=== PATIENT | female | born 1965 | race Caucasian/White ===

== ENCOUNTER → 2017-08-07 | Outpatient (CLI) | payer OTHER | LOC: FIMAGING 07:56 | PROVIDERS: ATTEND Orthopaedic Surgery | DX: S46.012A Strain of muscle(s) and tendon(s) of the rotator cuff of left shoulder, initial encounter (principal); M25.512 Pain in left shoulder; M75.82 Other shoulder lesions, left shoulder; M75.22 Bicipital tendinitis, left shoulder ==

== ENCOUNTER 2017-10-08 08:13 | Day surgery (SDC) | payer OTHER ==
--- NOTE | 2017-10-07 20:41 | GHP ---
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 She dislocated her left shoulder playing ultimate Gig[employer]letes[employer] with he r arm abducted, reaching for the Frisbee and landing on her arm. She sustained a traumatic anterior dislocation that required reduction in the emergency room and she has had a subsequent instability ev ent. She also has a history of rotator cuff tendinosis and impingement. She has had an MRI of her l eft shoulder dated 08/07/2017 that shows of anterior dislocation of the shoulder with a Hi ll-Sachs deformity posterior humeral head. There is also abnormality of the anterior inferior glenoi d, consistent with a capsular injury with this instability event, anterior displacement. There is moderate to severe partial tear of the distal supraspinatus tendon. Near full-thickness to full-thickness in the anterior aspect of the supraspinatus. There is subacromial bursitis, significa nt bony impingement anatomy. She has tried some conservative management of her instability but had recurrent instability. Left sh oulder surgery is planned. This will include a decompression of the shoulder, exploration and repair of the rotator cuff that I will start with arthroscopically. It may require a mini-open approach. I will also do an open Bankart procedure and capsular shift. ALLERGIES: No known drug allergies. PAST MEDICAL HISTORY: She does have a history of migraine headaches and arthritis joints. Her surgeries include a right shoulder arthroscopy and a right knee arthroscopy. 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 She is a nonsmoker. MEDICATIONS: Include topical gel, Celebrex. for migraines. REVIEW OF SYSTEMS: pulmonary disease. PHYSICAL EXAMINATION: GENERAL: The patient is a well-developed, well-nourished female in no apparen t distress. HEAD AND NECK: Normocephalic, atraumatic. CHEST: Clear. CARDIOVASCULAR: Regular rat e and rhythm. ABDOMEN: Soft. NEUROLOGIC: She is alert and oriented x3. EXTREMITIES: Examination of the left shoulder shows some stiffness with overhead motion. She has maintained good rotator cuf f strength on initiation of abduction and external rotation and supraspinatus testing. She does have some impingement findings. She is a little tender over the anterior joint capsule, has apprehension with abduction and external rotation. Neurovascular exam is intact and she is nontender over the AC joint. IMPRESSION: Left shoulder instability, posttraumatic instability, rotator cuff, impingement and part ial to near full-thickness tear of rotator cuff. PLAN: Left shoulder arthroscopy, decompression, cuff repair as needed, also a mini-open Bankart and capsular shift to address her instability. Benefits and risks of surgery were reviewed. She has sig rory a consent form and wishes to proceed. /[id number]/MODL
--- NOTE | 2017-10-08 07:22 | PDHPUP ---
History & Physical Update H&P update statement: This history and physical update is based on an assessment of the patient which was completed after admission or registration (within 24 hours), but prior to the surgery/procedure.
[2017-10-08] MEDS ORDERED: LR 1,000 ML IV SCH (08:22)
[2017-10-08] MEDS ORDERED: ceFAZolin 2 GM/SWFI 2 GM/20 ML SYR IVP ONE (08:22)
[2017-10-08] MEDS ORDERED: LR 1,000 ML IV ONE (08:23)
[2017-10-08] MEDS ORDERED: LIDOCAINE 1% 2 ML INJ ID PRN (08:23)
[2017-10-08] MEDS ORDERED: ROPIVACAINE HCL 150 MG/30 ML INJ ONE (08:50)
[2017-10-08] MEDS ORDERED: MIDAZOLAM 2 MG/2 ML VIAL ONE (08:51)
[2017-10-08] MEDS ORDERED: fentaNYL 100 MCG/2 ML INJ ONE (08:51)
[2017-10-08] MEDS ORDERED: PROPOFOL/EMULSION 500 MG/50 ML BOTTLE IV ONE (08:51)
[2017-10-08] MEDS ORDERED: BUPIVACAINE 0.25% 30 ML SDV ONE (09:26)
[2017-10-08] MEDS ORDERED: EPINEPHrine 30 MG/30 ML MDV (0.1 MG/0.1 ML) ONE (09:27)
--- NOTE | 2017-10-08 10:22 | PDANEPAE ---
ANE Past Medical History - Cardiovascular History Hx Hypertension: No Hx Arrhythmias: No Hx Chest Pain: No Hx Coronary Artery / Peripheral Vascular Disease: No Hx CHF / Valvular Disease: No Hx Palpitations: No - Pulmonary History Hx COPD: No Hx Asthma/Reactive Airway Disease: No Hx Recent Upper Respiratory Infection: No Hx Oxygen in Use at Home: No Hx Sleep Apnea: No Sleep Apnea Screening Result - Last Documented: Negative Pulmonary History Comment: URI 08/2017 - Neurologic History Hx Cerebrovascular Accident: No Hx Seizures: No Hx Dementia: No - Endocrine History Hx Diabetes: No - Renal History Hx Renal Disorders: No - Liver History Hx Hepatic Disorders: No - Neurological & Psychiatric Hx Hx Neurological and Psychiatric Disorders: Yes Neurological / Psychiatric History Comment: MIGRAINES 1-2 PER MONTH - Cancer History Hx Cancer: No - Congenital Disorder History Hx Congenital Disorders: No - GI History Hx Gastrointestinal Disorders: No - Other Health History Other Health History: LT SHLDR DISLOCATION X2 - Chronic Pain History Chronic Pain: Yes (LT SHLDR) - Surgical History Prior Surgeries: RT SHLDR SCOPE. RT KNEE SCOPE ANE Review of Systems Review of Systems: - Exercise capacity METS (RN): 6 METS ANE Patient History - Allergies Allergies/Adverse Reactions: No Known Allergies Allergy (Unverified 03/27/13 11:09) - Home Medications Home Medications: CeleBREX PRN 10/05/17 [Last Taken 09/24/17] IBUPROFEN PRN 10/05/17 [Last Taken 10/03/17 09:00] IMITREX PRN 10/05/17 [Last Taken 09/17/17] - NPO status NPO Since - Liquids (Date): 10/08/17 NPO Since - Liquids (Time): 05:00 NPO Since - Solids (Date): 10/07/17 NPO Since - Solids (Time): 19:00 - Smoking Hx Smoking Status: Never smoked ANE Labs/Vital Signs - Vital Signs Blood Pressure: 111/73 Heart Rate: 64 Respiratory Rate: 12 O2 Sat (%): 94 Height: 160.02 cm Weight: 70.307 kg ANE Physical Exam - Airway Neck exam: FROM Mallampati Score: Class 1 Mouth exam: normal dental/mouth exam - Pulmonary Pulmonary: no respiratory distress, no rales or rhonchi, clear to auscultation - Cardiovascular Cardiovascular: regular rate and rhythym, no murmur, rub, or gallop - ASA Status ASA Status: II ANE Anesthesia Plan Anesthesia Plan: GA w LMA Regional Anesthesia: single shot NB, interscalene BP NB
[2017-10-08] MEDS ORDERED: HYDROCODONE/APAP 5/325 TAB PO PRN (10:50)
[2017-10-08] MEDS ORDERED: DEXAMETHASONE 4 MG/ML VIAL IVP PRN (10:50)
[2017-10-08] MEDS ORDERED: ALBUTEROL 3 ML DEYVIAL IH PRN (10:50)
[2017-10-08] MEDS ORDERED: LR 500 ML IV PRN (10:50)
[2017-10-08] MEDS ORDERED: OXYCODONE/APAP 5/325 TAB PO PRN (10:50)
[2017-10-08] MEDS ORDERED: ACETAMINOPHEN 500 MG TAB PO PRN (10:50)
[2017-10-08] MEDS ORDERED: NALOXONE HCL 0.4 MG/ML INJ IVP PRN (10:50)
[2017-10-08] MEDS ORDERED: METOCLOPRAMIDE 10 MG/2 ML VIAL IVP PRN (10:50)
[2017-10-08] MEDS ORDERED: MEPERIDINE 25 MG/ML SYR IVP PRN (10:50)
[2017-10-08] MEDS ORDERED: ONDANSETRON 4 MG/2 ML VIAL IVP PRN (10:50)
[2017-10-08] MEDS ORDERED: fentaNYL 100 MCG/2 ML INJ IVP PRN (10:50)
[2017-10-08] MEDS ORDERED: PROMETHAZINE HCL 25 MG/ML INJ IVP PRN (10:50)
[2017-10-08] MEDS ORDERED: DEXAMETHASONE 4 MG/ML VIAL ONE (11:52)
[2017-10-08] MEDS ORDERED: METOCLOPRAMIDE 10 MG/2 ML VIAL ONE (11:52)
[2017-10-08] MEDS ORDERED: KETOROLAC 30 MG/1 ML SDV ONE (11:52)
[2017-10-08] MEDS ORDERED: ONDANSETRON 4 MG/2 ML VIAL ONE (11:52)
[2017-10-08] MEDS ORDERED: LIDOCAINE 2% 5 ML SDV ONE (11:52)
[2017-10-08] MEDS ORDERED: ROCURONIUM 50 MG/5 ML VIAL ONE (12:02)
[2017-10-08] MEDS ORDERED: SUGAMMADEX SODIUM 200 MG/2 ML VIAL IVP ONE (12:02)
[2017-10-08] MEDS ORDERED: clonIDINE 1 MG/10 ML VIAL EP ONE (12:32)
--- NOTE | 2017-10-08 14:18 | POSTANESTH ---
Post Anesthetic Evaluation Cardiovascular Status: Normal, Stable Respiratory Status: Normal, Stable Level of Consciousness/Mental Status: Can Participate in Eval Pain Control: Adequate, Prn Tx Ordered Nausea/Vomiting Control: Adequate, Prn Tx Ordered Complications Possibly Related to Anesthesia: None Noted
[2017-10-08 14:46] VITALS: BP 91/59; PULSE 70; RESP 18; TEMP 97.9; O2SAT 92
--- NOTE | 2017-10-08 19:57 | GOP ---
[f rep st] OPERATIVE REPORT DATE OF OPERATION: 10/08/2017 SURGEON: Grayson Fontenot MD PAINT ROLLER WINDER: FELIZ Moore ANESTHESIOLOGIST: Natty Ramirez MD PREOPERATIVE DIAGNOSIS: 1. Left shoulder impingement, rotator cuff tear. 2. Left shoulder posttraumatic anterior instability. POSTOPERATIVE DIAGNOSIS: 1. Left shoulder impingement, rotator cuff tear. 2. Left shoulder posttraumatic anterior instability. PROCEDURE PERFORMED: Left shoulder arthroscopy, arthroscopic subacromial decompression, arthroscopic rotator cuff repair (of supraspinatus), open Bankart procedure. FINDINGS: SPECIMENS: No specimens. All counts were correct. She did receive preoperative antibiotic and multiple antibiotic irrigations of the wound. My business office assistant, Sukhjinder Couch, was a medical necessity for this complex arthroscopic as well as o pen procedure for multiple shoulder pathologies. The patient was taken in stable condition to recove ry. ESTIMATED BLOOD LOSS: Minimal. 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 She has rotator cuff pathology with a supraspinatus tear and significant bony impingement. She also has sustained traumatic anterior instability that despite her middle-age status has become recurrent; she has typical anterior posttraumatic instability. Her MRI shows these pathologies including significa nt attenuation of her supraspinatus near its anterior aspect with a small area of full-thickness tear . There is significant bony impingement anatomy. There are also sequelae of the anterior instabilit y including a posterior Hill-Sachs lesion which is not large as well as a Bankart lesion that does no t appear labral as much as it is capsular stripping anterior inferior. Articular surfaces appear int act. Biceps appear intact. DESCRIPTION OF PROCEDURE: The patient was taken to the operating room, placed supine on the operatin g table, and a scalene block was provided under ultrasound guidance by Dr. Ramirez. She received 2 g of IV Ancef. She was placed under general anesthetic with laryngeal mask ventilation. She was zheng d onto her right side on a vaughn bag and an axillary roll. All bony prominences were well padded. Th e left upper extremity was placed in longitudinal traction of 10 pounds, in about 40 degrees of abduc tion and 20 degrees of forward flexion. Standard chlorhexidine prep and drape were carried out. Sta agnesard arthroscopy portals were used. I introduced the scope posteriorly and a shaver anteriorly. I debrided the labrum and the undersurface of the cuff visualizing the cuff tear. A significant portio n of the supraspinatus footprint was exposed by this tear, though the tear front to back was not very large, perhaps a centimeter. The long head biceps tendon was in good shape. I then introduced the scope into the subacromial space. I established a lateral portal. I used a shaver and a tissue abla tor to clean off the undersurface of the acromion that had significantly prominent undersurface anato my. I used an acromionizer bur to flatten the undersurface of the acromion to a type 1 anatomy. I d id a bursectomy. I debrided the full-thickness cuff tear in the anterior aspect of the supraspinatus and I used the acromionizer bur to prepare a bleeding bony surface in the footprint. I used an Arth anam Scorpion to mattress a FiberWire suture, reaching back about 1 cm to 1.5 cm, into good substance of the supraspinatus tendon. I placed a single SwiveLock anchor, and the bone quality was excellent and mello the cuff into the footprint, and this was a good purchase with this absorbable screw in the proximal humerus. I cut the sutures flush. This made a nice flush repair. I irrigated the space an d removed the arthroscopic equipment. She was then repositioned, re-prepped and draped in a semi-dorina ch chair position on a regular table with a rolled towel beneath the left shoulder. I made a longitu dinal incision extending superiorly from the axillary fold, dissected through subcutaneous tissue, di ssected to the deltopectoral interval. I slipped a subdeltoid retractor exposing the proximal humeru s. I identified the greater and lesser tuberosities in the bicipital groove. About 1 cm or so media l to the lesser tuberosity, I made a vertical incision full-thickness through subscapularis and capsu le. I found that the subscapularis was quite attenuated and thin, not torn, but fairly attenuated, m aking it challenging to separate a true subscap tendon layer from the underlying capsule; so I chose to treat this layer which was already thin as 1 unit. By opening a little into the interval and down inferiorly toward the neck, I was able to slip a [facility] humeral head retractor. The humeral head an d the glenoid had good articular cartilage. Using a [place] and an elevator, I was able to establish a bare bony surface on the anterior lip of the inferior neck where she had stretched capsular Bankart lesion. I prepared this with a rongeur or to a bleeding surface. I placed 2 SutureTak Arthrex ancho rs starting 1 at about the mid anterior glenoid and 1 more inferior. These had good purchase in the bone, and I mattressed these, reaching them through the capsule in 2 different locations to basically obliterate the Bankart lesion when these were tied down. Because of the attenuation of the subscapu brianne layer, I basically shifted the whole capsule and subscapularis a bit inferiorly effectively doi ng a capsular shift, and I repaired the subscap and capsule anatomically laterally to the cuff of tis selin at the lesser tuberosity. This repair snugged up at about 20-25 degrees of external rotation. I rrigation was used. It took some time with irrigation and careful inspection to ensure hemostasis. The wound was closed in layers with 2-0 Monocryl, 3-0 Monocryl, and the skin with a 3-0 Monoderm Quil l absorbable subcuticular layer, and then I used a tissue glue. I placed a more absorbable dressing on the remainder of the portals and Hypafix tape, and she was placed in a sling with a small abductio n pillow. Overall the surgery was performed without complication. DRAINS: There were no drains. /[id number]/MODL
== END 2017-10-08 15:10 | disposition home or self-care (01) ==
LOC: FSGY 08:13
PROVIDERS: ATTEND Orthopaedic Surgery
PROC: 0MN24ZZ Release Left Shoulder Bursa and Ligament, Percutaneous Endoscopic Approach (ICD-10-PCS; principal; 2017-10-08 09:30)
PROC: 0RQK0ZZ Repair Left Shoulder Joint, Open Approach (ICD-10-PCS; principal; 2017-10-08 09:30)
PROC: 0LQ24ZZ Repair Left Shoulder Tendon, Percutaneous Endoscopic Approach (ICD-10-PCS; principal; 2017-10-08 09:30)
DX: M24.412 Recurrent dislocation, left shoulder (principal); M25.812 Other specified joint disorders, left shoulder; M75.122 Complete rotator cuff tear or rupture of left shoulder, not specified as traumatic
CPT/HCPCS: C1713; J0171; J0690; J0735; J1100; J1885; J2250; J2405; J2704; J2765; J2795; J3010

== ENCOUNTER → 2018-09-26 | Outpatient (CLI) | payer OTHER | LOC: FIMAGING 15:32 | PROVIDERS: ATTEND Obstetrics & Gynecology Gynecology | DX: Z12.31 Encounter for screening mammogram for malignant neoplasm of breast (principal) ==